=== PATIENT | male | born 1985 | race Caucasian/White ===

== ENCOUNTER 2023-02-20 08:56 | Emergency (ER) | payer SELFPAY ==
--- NOTE | 2023-02-20 09:45 | ER ---
Nurse's Notes [facility] Name: David Tamayo Age: 38 yrs Sex: Male : 1985 Arrival Date: 02/20/2023 Time: 08:56 Bed 29 Private MD: Diagnosis: Pain in left foot;Pain in right foot Presentation: 02/20 09:26 Chief complaint: Patient states: bilateral foot pain for months, left foot greater than ko1 right. 09:35 Coronavirus screen: At this time, the client does not indicate any symptoms associated ko1 with coronavirus-19. Ebola Screen: No symptoms or risks identified at this time. Initial Sepsis Screen: Does the patient meet any 2 criteria? No. Patient's initial sepsis screen is negative. Does the patient have a suspected source of infection? No. Patient's initial sepsis screen is negative. Risk Assessment: Do you want to hurt yourself or someone else? Patient reports no desire to harm self or others. Onset of symptoms is unknown. 09:35 Method Of Arrival: Ambulatory ko1 09:35 Acuity: DELORES 4 ko1 Triage Assessment: 09:54 General: Appears in no apparent distress. Behavior is calm, cooperative, appropriate ll1 for age. Historical: - Allergies: 09:36 No Known Allergies; ko1 - Immunization history:: Adult Immunizations up to date. - Social history:: Smoking status: Patient denies any tobacco usage or history of. Screenin:36 [facility] ED Fall Risk Assessment (Adult) Impaired Gait Yes (1 pt) Score/Fall Risk Level ll1 0 - 2 = Low Risk Oriented to surroundings, Maintained a safe environment, Educated pt \T\ family on fall prevention, incl call for assistance when getting out of bed, Hourly rounding (assess needs \T\ fall precautionary measures) done. Abuse screen: Denies threats or abuse. Nutritional screening: No deficits noted. Tuberculosis screening: No symptoms or risk factors identified. Assessment: 09:52 General: Appears in no apparent distress. Behavior is calm, cooperative, appropriate ll1 for age. Pain: Complains of pain in right foot and left foot Quality of pain is described as aching. Musculoskeletal: Reports pain in right foot and left foot. Vital Signs: 09:35 BP 129 / 81; Pulse 77; Resp 18; Temp 98.1; Pulse Ox 98% ; ko1 ED Course: 09:15 Patient arrived in ED. rg4 09:17 Daja Shane PA-C is PHCP. sb4 09:17 Tirso Reno MD is Attending Physician. sb4 09:36 Triage completed. ko1 09:36 Buddy Weston, RN is Primary Nurse. ll1 09:36 Arm band placed on Patient placed in an exam room, on a stretcher. ll1 09:44 Román Fox DPM is Referral Physician. sb4 09:54 Patient has correct armband on for positive identification. Call light in reach. ll1 Provided Education on: n/a. 09:54 No provider procedures requiring assistance completed. Patient did not have IV access ll1 during this emergency room visit. Administered Medications: 09:54 Drug: Ibuprofen PO 600 mg Route: PO; ll1 09:58 Follow up: Response: No adverse reaction ll1 Medication: 09:37 VIS not applicable for this client. ll1 Outcome: 09:45 Discharge ordered by MD. sb4 09:54 Patient left the ED. ll1 09:54 Discharged to home ambulatory. ll1 09:54 Condition: stable 09:54 Discharge instructions given to patient, Instructed on discharge instructions, follow up and referral plans. medication usage, Demonstrated understanding of instructions, follow-up care, medications, Prescriptions given X 1. Signatures: Adriana Palomo rg4 Buddy Weston, RN RN ll1 Carla Lakhani RN RN ko1 Daja Shane PA-C PA-C sb4
--- NOTE | 2023-02-20 09:45 | EDPHYS ---
Physician Documentation [facility] Name: David Tamayo Age: 38 yrs Sex: Male : 1985 Arrival Date: 02/20/2023 Time: 08:56 Bed 29 Private MD: ED Physician Tirso Reno HPI: 02/20 09:56 This 38 yrs old Male presents to ER via Ambulatory with complaints of Foot Pain. sb4 09:56 The patient presents with pain, that is chronic. The complaints affect the right foot sb4 and left foot. Context: resulted from a chronic condition, the patient can fully bear weight, the patient is able to ambulate, Problem is a result from a previous injury: No. Onset: The symptoms/episode began/occurred 1 month(s) ago. Modifying factors: The symptoms are alleviated by nothing. the symptoms are aggravated by weight bearing. Associated signs and symptoms: The patient has no apparent associated signs or symptoms. Treatment prior to arrival includes: no previous treatment. The patient has not experienced similar symptoms in the past. The patient has not recently seen a physician. Historical: - Allergies: 09:36 No Known Allergies; ko1 - Immunization history:: Adult Immunizations up to date. - Social history:: Smoking status: Patient denies any tobacco usage or history of. ROS: 09:56 Constitutional: Negative for fever, chills, and weight loss. sb4 09:56 MS/extremity: Positive for pain, of the left foot and right foot. 09:56 All other systems are negative. Exam: 09:56 Head/Face: Normocephalic, atraumatic. Eyes: Extra-ocular motions intact. Periorbital sb4 areas with no swelling, redness, or edema. ENT: Mucous membranes moist. 09:56 Skin: Warm, dry with normal turgor. Normal color with no rashes, no lesions, and no evidence of cellulitis. MS/ Extremity: Pulses equal, no cyanosis. Neurovascular intact. Full, normal range of motion. Neuro: Awake and alert, GCS 15, oriented to person, place, time, and situation. Motor strength 5/5 in all extremities. Sensory grossly intact. Normal gait. 09:56 Constitutional: The patient appears alert, awake, obese. Vital Signs: 09:35 BP 129 / 81; Pulse 77; Resp 18; Temp 98.1; Pulse Ox 98% ; ko1 MDM: 09:22 Patient medically screened. sb4 09:56 Differential diagnosis: neuropathy, obesity, arthritis. Data reviewed: vital signs, sb4 nurses notes, I have discussed the patient's presentation/case with the attending Emergency Department Physician; and as a result, I will discharge patient. Care significantly affected by the following chronic conditions: Obesity. Counseling: I had a detailed discussion with the patient and/or guardian regarding the historical points, exam findings, and any diagnostic results supporting the discharge/admit diagnosis, the need for outpatient follow up, for definitive care. Administered Medications: 09:54 Drug: Ibuprofen PO 600 mg Route: PO; ll1 09:58 Follow up: Response: No adverse reaction ll1 Disposition Summary: 02/20/23 09:45 Discharge Ordered Location: Home sb4 Problem: an ongoing problem sb4 Symptoms: are unchanged sb4 Condition: Stable sb4 Diagnosis - Pain in left foot sb4 - Pain in right foot sb4 Followup: sb4 - With: Román Fox DPM - When: 2 - 3 days - Reason: Recheck today's complaints, Re-evaluation by your physician Discharge Instructions: - Discharge Summary Sheet sb4 - Exercising to Lose Weight sb4 - Heart-Healthy Eating Plan sb4 - Foot Pain sb4 Forms: - Medication Reconciliation Form sb4 - Thank You Letter sb4 - Antibiotic Education sb4 - Prescription Opioid Use sb4 - Patient Portal Instructions sb4 - Leadership Thank You Letter sb4 Prescriptions: - meloxicam 15 mg Oral tablet - take 1 tablet by ORAL route daily; 14 tablet; Refills: 0, Product Selection sb4 Permitted Signatures: Buddy Weston RN RN ll1 Carla Lakhani RN RN ko1 Daja Shane, PAAna PA-C sb4
[2023-02-20 10:00] VITALS: BP 129/81; TEMP 98.1; O2SAT 98
[2023-02-20] MEDS ORDERED: IBUPROFEN 200 MG TAB PO ONE (10:01)
[2023-02-20] MEDS ORDERED: IBUPROFEN 400 MG TAB ONE (10:01)
== END 2023-02-20 09:54 | disposition home or self-care (01) ==
LOC: ER 08:56
DX: M79.672 Pain in left foot (principal); M79.671 Pain in right foot
CPT/HCPCS: 99283

== ENCOUNTER → 2023-05-30 | Emergency (ER) | payer SELFPAY ==
--- NOTE | 2023-05-30 17:42 | EDPHYS ---
Physician Documentation [facility] Name: David Tamayo Age: 38 yrs Sex: Male : 1985 Arrival Date: 05/30/2023 Time: 15:58 Bed 10 Private MD: ED Physician Leon Alvarez HPI: 05/30 16:15 This 38 yrs old Male presents to ER via Ambulatory with complaints of cough. sb4 16:15 The patient or guardian reports cough, that is intermittent, with productive sputum, sb4 that is yellow. Onset: The symptoms/episode began/occurred 1 month(s) ago. cough x 1 month. sometimes so intense, his sputum is blood streaked. has not taken any OTC medications. denies any other symptoms. states is having to sleep sitting up. cough wakes him up. Historical: - Allergies: 16:09 No Known Allergies; ko1 - Home Meds: 16:09 None [Active]; ko1 - PMHx: 16:09 None; ko1 - PSHx: 16:09 None; ko1 - Immunization history:: Adult Immunizations unknown. - Social history:: Smoking status: Patient denies any tobacco usage or history of. ROS: 16:15 Constitutional: Negative for fever, chills, and weight loss, sb4 16:15 Respiratory: Positive for cough, "sounds productive", 16:15 All other systems are negative, Exam: 16:15 Head/Face: Normocephalic, atraumatic. Eyes: Extra-ocular motions intact. Periorbital sb4 areas with no swelling, redness, or edema. ENT: Mucous membranes moist. Cardiovascular: Regular rate and rhythm with a normal S1 and S2. Abdomen/GI: Soft, non-tender, no distension. MS/ Extremity: Pulses equal, no cyanosis. Neurovascular intact. Full, normal range of motion. Neuro: Awake and alert, GCS 15, oriented to person, place, time, and situation. Motor strength 5/5 in all extremities. Sensory grossly intact. Psych: Awake, alert, with orientation to person, place and time. Behavior, mood, and affect are within normal limits. 16:15 Constitutional: The patient appears alert, awake, obese, 16:15 Respiratory: the patient does not display signs of respiratory distress, Respirations: normal, no acute changes, Breath sounds: + upper airway congestion. Vital Signs: 16:03 BP 133 / 86; Pulse 91; Resp 16; Temp 98.2; Pulse Ox 95% ; ko1 MDM: 16:14 Patient medically screened. sb4 16:15 Differential Diagnosis: Bronchitis Upper Respiratory Infection Pneumonia. sb4 17:29 Data reviewed: vital signs, nurses notes, radiologic studies, and as a result, I will sb4 discharge patient. Independent interpretation of the following test(s) in the Emergency Department X-Ray: My interpretation is my interpretation of the chest xray images are no acute consolidation/infiltrate. Test considered but Not performed: Labs: not necessary, no symptoms other than cough x 1 month. stable vitals. Historians other than the Patient: Spouse/Significant Other: . Care significantly affected by the following chronic conditions: Obesity. Counseling: I had a detailed discussion with the patient and/or guardian regarding the historical points, exam findings, and any diagnostic results supporting the discharge/admit diagnosis, radiology results, the need for outpatient follow up, for definitive care, to return to the emergency department if symptoms worsen or persist or if there are any questions or concerns that arise at home. 05/30 16:14 Order name: Chest Pa And Lat (2 Views) XRAY; Complete Time: 17:45 sb4 Administered Medications: No medications were administered Disposition: 21:20 Co-signature as Attending Physician, Leon Alvarez MD I agree with the assessment and kdr plan of care. Disposition Summary: 05/30/23 17:41 Discharge Ordered Notes: Location: Home sb4 Problem: an ongoing problem sb4 Symptoms: are unchanged sb4 Condition: Stable sb4 Diagnosis - Cough sb4 - Hemoptysis sb4 Followup: sb4 - With: Ron Tavares, - When: 2 - 3 days - Reason: Recheck today's complaints, Continuance of care, Re-evaluation by your physician Discharge Instructions: - Discharge Summary Sheet sb4 - Hemoptysis sb4 - Cough, Adult, [id number] sb4 Forms: - Medication Reconciliation Form sb4 - Thank You Letter sb4 - Antibiotic Education sb4 - Prescription Opioid Use sb4 - Patient Portal Instructions sb4 - Leadership Thank You Letter sb4 Prescriptions: - Delsym Cough-Chest Congest DM 5-100 mg/5 mL Oral liquid - take 2.5 milliliter ORAL route every 6 to 8 hours as needed for cough; 50 sb4 milliliter; Refills: 0, Product Selection Permitted - azithromycin 250 mg Oral tablet - take 1 dose pack ORAL route as directed on dose pack For 250 mg dose pack: take sb4 500 mg today (day 1), then 250 mg for 4 days (days 2-5); 1 Pack; Refills: 0, Product Selection Permitted - Prednisone 20 mg Oral Tablet - take 1 tablet ORAL route every 12 hours for 5 days; 10 tablet; Refills: 0, sb4 Product Selection Permitted Signatures: Dispatcher [employer] Leon Burgos MD MD kdr Oliver, Kathy RN RN ko1 Daja Shane PA-C PA-C sb4
--- NOTE | 2023-05-30 17:42 | ER ---
Nurse's Notes [facility] Name: David Tamayo Age: 38 yrs Sex: Male : 1985 Arrival Date: 05/30/2023 Time: 15:58 Bed 10 Private MD: Diagnosis: Cough;Hemoptysis Presentation: 05/30 16:03 Chief complaint: Patient states: cough for about a month, productive and occasionally ko1 has bloody streaks from coughing so hard. It isnt getting any better and now feeling dizzy. Coronavirus screen: At this time, the client does not indicate any symptoms associated with coronavirus-19. Ebola Screen: No symptoms or risks identified at this time. Initial Sepsis Screen: Does the patient meet any 2 criteria? No. Patient's initial sepsis screen is negative. Does the patient have a suspected source of infection? No. Patient's initial sepsis screen is negative. Risk Assessment: Do you want to hurt yourself or someone else? Patient reports no desire to harm self or others. Onset of symptoms is unknown. 16:03 Method Of Arrival: Ambulatory ko1 16:03 Acuity: DELORES 4 ko1 Triage Assessment: 16:09 General: Appears in no apparent distress. Behavior is calm, cooperative, appropriate ko1 for age. Pain: Denies pain. Historical: - Allergies: 16:09 No Known Allergies; ko1 - Home Meds: 16:09 None [Active]; ko1 - PMHx: 16:09 None; ko1 - PSHx: 16:09 None; ko1 - Immunization history:: Adult Immunizations unknown. - Social history:: Smoking status: Patient denies any tobacco usage or history of. Screenin:38 [facility] ED Fall Risk Assessment (Adult) History of falling in the last 3 months, cp4 including since admission No falls in past 3 months (0 pts) Confusion or Disorientation No (0 pts) Intoxicated or Sedated No (0 pts) Impaired Gait No (0 pts) Mobility Assist Device Used No (0 pt) Altered Elimination No (0 pt) Score/Fall Risk Level 0 - 2 = Low Risk Oriented to surroundings, Maintained a safe environment, Educated pt \T\ family on fall prevention, incl call for assistance when getting out of bed, Assessed \T\ reinforced patient's understanding of fall precautions, Hourly rounding (assess needs \T\ fall precautionary measures) done. Abuse screen: Denies threats or abuse. Nutritional screening: No deficits noted. Tuberculosis screening: No symptoms or risk factors identified. Assessment: 16:38 General: Appears in no apparent distress. Behavior is calm, cooperative, appropriate cp4 for age. Pain: Denies pain. Vital Signs: 16:03 BP 133 / 86; Pulse 91; Resp 16; Temp 98.2; Pulse Ox 95% ; ko1 ED Course: 16:01 Patient arrived in ED. ts1 16:05 Daja Shane PA-C is PHCP. sb4 16:05 Leon Alvarez MD is Attending Physician. sb4 16:09 Triage completed. ko1 16:09 Arm band placed on right wrist. Patient placed in waiting room, Patient notified of ko1 wait time. 16:12 Sherin Tarango is Primary Nurse. cp4 16:38 Bed in low position. Call light in reach. Side rails up X 1. cp4 16:38 No provider procedures requiring assistance completed. cp4 16:52 Chest Pa And Lat (2 Views) XRAY In Process Unspecified. EDMS 17:41 Ron Tavares DO is Referral Physician. sb4 17:52 Provided Education on: hemopysis and cough. cp4 17:52 Patient did not have IV access during this emergency room visit. cp4 Administered Medications: No medications were administered Medication: 16:38 VIS not applicable for this client. cp4 Outcome: 17:41 Discharge ordered by MD. sb4 17:52 Discharged to home ambulatory, cp4 17:52 Condition: stable 17:52 Discharge instructions given to patient, Instructed on discharge instructions, follow up and referral plans. medication usage, Demonstrated understanding of instructions, follow-up care, medications, Prescriptions given X 3, 17:53 Patient left the ED. cp4 Signatures: Dispatcher [employer] EDMS Carla Lakhani RN RN ko1 Daja Shane PA-C PA-C sb4 Lisa Escobra PAS PAS ts1 Sherin Tarango cp4
--- NOTE | 2023-05-30 17:43 | RAD REPORT ---
EXAM DESCRIPTION: RAD - Chest Pa And Lat (2 Views) - 05/30/2023 4:51 pm CLINICAL HISTORY: Chest pain;Congestion;Cough COMPARISON: No comparisons TECHNIQUE: PA and lateral views of the chest were obtained. FINDINGS: The lungs show no focal consolidation. Streaky parahilar mild opacities and bronchial wall thickening. Heart size is normal and central vasculature is within normal limits. No pleural effusio n or pneumothorax seen. No acute bony finding noted. IMPRESSION: Findings suggestive of reactive airway changes or viral infection.
[2023-05-30 18:58] VITALS: BP 133/86; TEMP 98.2; O2SAT 95
== END ==
LOC: ER 15:58
DX: R04.2 Hemoptysis (principal)
CPT/HCPCS: 71046; 99283

== ENCOUNTER 2024-05-31 15:34 | Emergency (ER) | payer OTHER ==
--- OUTSIDE RECORDS SUMMARY | 2024-05-31 15:37 | XMS REPORT | Continuity of Care Document ---
Author Name Unknown Address [address] [place] [address] [facility] thconnect Address [address] [place] [address] Care Team Providers Care Basting Marker Name Role Phone Pcp, Patient Does Not Have A Primary Care Physic jessi Campaigns, Generic Provider Attending Clinician Unavailable ALEM VARGAS Attending Clinician Unavailable Alem Cade Attending Clinician ALEM VARGAS Admitting Clinician Unavailable Payers Payer Name Policy Type Policy Number Effective Date Expirati on Date Source Allergies, Adverse Reactions, Alerts Allergy Name Allergy Type Status Severity Reaction(s) Onset Date Inactive Date Treating Clinician Comments Source NO KNOWN ALLERGIE S Drug Class Active [facility] Social History Social Habit Start Date Stop Date Quantity Comments Source Sexual orientation U [facility] Sex assigned at 1985 00:00:00 1985 00:00:00 [facility] Smoking Status Start Date Stop Date Source Tobacco smoking consumption unknown [facility] Medications Ordered Medication Name Filled Medication Name Start Date Stop Date Current Medication? Ordering Clinician Indication Dosage Frequency Signature (SIG) Comments Components Source cyclobenzap rine (FLEXERIL) tablet 10 mg 11-30 17:15: 00 11-30 17:11 :00 No 10mg 10 mg, Oral, ONCE, 1 dose, On Fri12/01/23 at 1215, Routine [facility] ketorolac (TORADOL) injection 30 mg 11-30 16:30: 00 11-30 17:12 :00 No 30mg 30 mg, Intramuscu lar, ONCE, 1 dose, On Fri12/01/23 at 1130, CARLOS EDUARDO [facility] cyclobenzap rine 10 mg tablet 11-30 00:00: 00 Yes [id number] 10mg Take 1 tablet by mouth 3 (three) times daily as needed for Muscle Spasms. [facility] ibuprofen 800 mg tablet 11-30 00:00: 00 Yes [id number] 800mg Take 1 tablet by mouth every 6 (six) hours as needed for Pain (scale 4-6) or Pain (scale 1-3). [facility] Vital Signs Vital Name Observation Time Observation Value Comments S ource Systolic blood pressure 2023-12-01 18:15:00 133 mm[Hg] [facility] Diastolic blood pressure 2023-12-01 18:15:00 89 mm[Hg] [facility] Heart rate 2023-12-01 18:15:00 65 /min [facility] Body temperature 2023-12-01 18:15:[address] [facility] Respiratory rate 2023-12-01 18:15:00 14 /min [facility] Oxygen saturation in Arterial blood by Pulse oximetry 2023-12-01 18:15:00 99 /min [facility] Body height 2023-12-01 16:10:00 165.1 cm [facility] Body weight 2023-12-01 16:10:00 149.687 kg [facility] BMI 2023-12-01 16:10:00 54.91 kg/m2 [facility] Procedures Procedure Date / Time Performed Performing Clinicia n Source XR HEEL 2+ VW RIGHT 2023-12-01 16:54:[address] [facility] Encounters Start Date/Time End Date/Time Encounter Type Admission Type Attending Clinicians Care Facility Care Department Encounter ID Source 2023-12-10 00:00:00 2023-12-10 11:04:01 Letter (Out) Campaigns, Generic Provider [facility] [id number] [facility] 2023-12-01 11:16:00 2023-12-01 13:46:00 Emergency X ALEM VARGAS [facility] ERT [id number] [facility] 2023-12-01 11:16:00 2023-12-01 13:46:00 Emergency Alem Vargas [facility] [id number] [facility] Results Test Description Test Time Test Comments Results Resul t Comments Source XR HEEL 2+ VW RIGHT 2023-12-01 17:42:51 ORDERING PHYSICIAN: ALEM VARGAS. HISTORY: pain x 3 days, eval for acute abnormality TECHNIQUE: 2 views COMPARISON: None. FINDINGS: Alignment is anatomic. Joint spaces are maintained. No fracture isidentified. There is mild plantar and posterior calcaneal spurring. Softtissue shadows are normal. [facility]
--- NOTE | 2024-05-31 16:43 | ER ---
Nurse's Notes [facility] Name: David Tamayo Age: 39 yrs Sex: Male : 1985 Arrival Date: 05/31/2024 Time: 15:34 Bed Treatment Private MD: Diagnosis: Mid back pain, chronic Presentation: 05/31 16:09 Chief complaint: Mid back pain x 2 months. Coronavirus screen: At this time, the client hb does not indicate any symptoms associated with coronavirus-19. Ebola Screen: No symptoms or risks identified at this time. Initial Sepsis Screen: Does the patient meet any 2 criteria? No. Patient's initial sepsis screen is negative. Does the patient have a suspected source of infection? No. Patient's initial sepsis screen is negative. Risk Assessment: Do you want to hurt yourself or someone else? Patient reports no desire to harm self or others. Onset of symptoms is unknown. 16:09 Method Of Arrival: Ambulatory hb 16:09 Acuity: DELORES 4 hb Historical: - Allergies: 16:11 No Known Allergies; hb - Home Meds: 16:11 None [Active]; hb - PMHx: 16:11 None; hb - PSHx: 16:11 None; hb - Immunization history:: Adult Immunizations up to date. - Infectious Disease History:: Denies. - Social history:: Smoking status: Reported history of juuling and/or vaping. Vital Signs: 16:09 BP 176 / 95; Pulse 65; Resp 16; Temp 97.7(TE); Pulse Ox 99% on R/A; Weight 149.69 kg; hb Height 5 ft. 5 in. ; Pain 10/10; 16:09 Body Mass Index 54.91 (149.69 kg, 165.1 cm) hb 16:09 Pain Scale: Adult hb ED Course: 15:36 Patient arrived in ED. im 16:11 Triage completed. hb 16:11 Arm band placed on. hb 16:15 Daja Shane PA-C is PHCP. sb4 16:15 Tirso Reno MD is Attending Physician. sb4 16:42 Arturo Josue MD is Referral Physician. sb4 17:30 No provider procedures requiring assistance completed. Patient did not have IV access hb during this emergency room visit. Administered Medications: 17:29 Drug: Ketorolac IM 30 mg IM once Route: IM; Site: left deltoid; hb 17:29 Follow up: Response: Medication administered at discharge. hb 17:29 Drug: Dexamethasone IM 10 mg IM once Route: IM; Site: right deltoid; hb 17:29 Follow up: Response: Medication administered at discharge. hb 17:29 Drug: Lidoderm Topical Patch 5 % (700 mg/patch) 1 patches Topical once; leave on for 12 hb hours; cover most painful area; may cut into smaller pieces Route: Topical; Site: affected area; 17:29 Follow up: Response: Medication administered at discharge. hb 17:29 Drug: Cyclobenzaprine PO 10 mg PO once Route: PO; hb 17:29 Follow up: Response: Medication administered at discharge. Outcome: 16:43 Discharge ordered by sb4 17:30 Discharged to home ambulatory, hb 17:30 Condition: stable 17:30 Discharge instructions given to patient, Instructed on discharge instructions, follow up and referral plans. medication usage, Demonstrated understanding of instructions, follow-up care, medications, Prescriptions given X 2, 17:30 Patient left the ED. hb Signatures: Teagan Grace RN RN Daja Stafford, PA-C PA-C sb4 Robina Cha im Corrections: (The following items were deleted from the chart) 16:12 16:11 Social history: Smoking status: Patient denies any tobacco usage or history of. hbhb
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
[2024-05-31] MEDS ORDERED: dexAMETHasone 10 MG/ML VIAL ONE (17:16)
[2024-05-31] MEDS ORDERED: LIDOCAINE 4% PATCH ONE (17:17)
[2024-05-31] MEDS ORDERED: CYCLOBENZAPRINE 10 MG TAB ONE (17:17)
[2024-05-31] MEDS ORDERED: KETOROLAC 30 MG/ML INJ ONE (17:17)
[2024-05-31 17:44] VITALS: BP 176/95; TEMP 97.7; O2SAT 99
== END 2024-05-31 17:30 | disposition home or self-care (01) ==
LOC: ER 15:34
DX: M54.9 Dorsalgia, unspecified (principal); M54.6 Pain in thoracic spine
CPT/HCPCS: 96372; 99284; J2003; J1100